=== PATIENT | female | born 1995 | race African-American/Black ===

== ENCOUNTER 2019-07-27 21:44 | Emergency (ER) | payer MEDICAID ==
[~2019-07-27] VITALS: Ht 157.5 cm; Wt 46.2 kg
[2019-07-28 00:32] VITALS: BP 118/76
== END 2019-07-28 00:33 | disposition home or self-care (01) ==
LOC: ER 21:44
DX: H10.022 Other mucopurulent conjunctivitis, left eye (principal)
CPT/HCPCS: 99283

== ENCOUNTER 2019-08-02 18:41 | Emergency (ER) | payer MEDICAID ==
[~2019-08-02] VITALS: Ht 160 cm; Wt 42.0 kg
[2019-08-02] MEDS ORDERED: FLUORESCEIN SODIUM 1MG/STRIP LEFTEYE ONE (19:15)
[2019-08-02] MEDS ORDERED: TETRACAINE 0.5% OPHTH DROPS 4ML LEFTEYE ONE (19:15)
[2019-08-02] MEDS ORDERED: IBUPROFEN 600MG TABLET PO ONE (19:15)
[2019-08-02 21:29] VITALS: BP 110/70
== END 2019-08-02 21:31 | disposition home or self-care (01) ==
LOC: ER 18:41
DX: H10.32 Unspecified acute conjunctivitis, left eye (principal)
CPT/HCPCS: 99283